=== PATIENT | male | born 1995 | race Caucasian/White ===

== ENCOUNTER 2017-01-02 19:08 | Emergency (ER) | payer OTHER ==
[2017-01-02 19:12] VITALS: RESP 18; O2SAT 97
[2017-01-02] MEDS ORDERED: IBUPROFEN 600 MG TAB PO ONE (19:32)
--- NOTE | 2017-01-02 19:38 | EDPHY ---
H & P Stated Complaint: fell, deformity to right elbow HPI/ROS: CHIEF COMPLAINT: Elbow injury, fall HISTORY OF PRESENT ILLNESS: Patient was skateboarding just prior to arrival when he fell on outstretched arm. He landed with his palm on the ground. He he describes a hyperextension injury of the right elbow. He now has pain over the proximal radius, posterior elbow. He has no pain of the right hand, wrist, shoulder. No head or neck injury. No loss of conscious. No chest or back injury or pain. No abdominal pain. The pain in the right elbow is mild-to- moderate. More painful with flexion, supination or pronation. It does not radiate. There is no sensory changes distally. No injury elsewhere. He is right-hand dominant. No other associated complaints or modifying factors. Mother is at bedside. PRIOR ORTHO INJURIES: None ESTABLISHED ORTHOPEDIST: None REVIEW OF SYSTEMS: Ten systems reviewed and are negative unless otherwise noted in the HPI EXAMINATION General Appearance: Alert, no distress Cardiovascular: Pulses normal throughout. Symmetric radial pulses 2+. Brisk cap refill Neurological: A&O, sensory symmetric, strength symmetric. Strength is symmetric in the interossei. Difficult to test strength in the elbow due to pain. Two point sensation intact in the right hand. Radial, ulnar and median distributions intact in the affected arm. Skin: Warm and dry, no rash. No lacerations abrasions or contusions. Extremities: Tenderness it radial head, olecranon on the right upper extremity. There is no tenderness of the right hand. No tenderness of the right anatomic snuffbox. Range of motion of the fingers and wrist are fully intact. Range of motion of the right shoulder intact. Range of motion of the elbow is difficult to test due to pain. He does have painful pronation and supination. He is neurovascular intact distally. Psychiatric: Mood and affect normal DIFFERENTIAL DIAGNOSES: Including but not limited to radial head fracture, sprain, strain, dislocation, subluxation, fracture dislocation MDM: 7:28 p.m. Mechanical fall on outstretched arm with pain in the right posterior elbow and at the radial head. He is neurovascular intact distally. No injury to the right shoulder, brachium, forearm, wrist or fingers. X-ray has been ordered. 7:55 p.m. X-ray as interpreted by me reveals a small, nondisplaced radial head fracture as well as a small avulsion off the posterior aspect of the olecranon. He remains neurovascular intact. Awaiting the radiologist's interpretation. 8:10 p.m. X-ray has been read as an olecranon fracture. I discussed the film with Dr. Donnelly regarding the possibility of a radial head fracture. He does not appreciate an acute fracture. The patient be placed in a posterior splint sling. I have discussed this with the patient. He remains neurovascular intact. We discussed orthopedic follow-up, return to the emergency department precautions. He is comfortable with this plan. Splint procedure: I did actively participate in the application of the splint on this patient. He is neurovascular intact post procedure. ED Precautions: Worsening pain. Erythema, edema, cyanosis, pallor, paresthesia or anesthesia. SUPERVISION: This patient was independently evaluated without direct examination by the attending physician. Case was discussed with attending physician. Source: Patient, Family Exam Limitations: No limitations - Personal History Current Tetanus Diphtheria and Acellular Pertussis (TDAP): Yes - Medical/Surgical History Hx Asthma: No Hx Chronic Respiratory Disease: No Hx Diabetes: No Hx Cardiac Disease: No Hx Renal Disease: No Hx Cirrhosis: No Hx Alcoholism: No Hx HIV/AIDS: No Hx Splenectomy or Spleen Trauma: No Other PMH: denies - Social History Smoking Status: Never smoked Constitutional: Initial Vital Signs Temperature (C) 98.6 F 01/02/17 19:10 Heart Rate 66 01/02/17 19:10 Respiratory Rate 18 01/02/17 19:10 Blood Pressure 141/83 H 01/02/17 19:10 O2 Sat (%) 97 01/02/17 19:10 O2 Delivery Mode Room Air Allergies/Adverse Reactions: No Known Allergies Allergy (Unverified 01/02/17 19:10) Home Medications: Medication Instructions Recorded Hydrocodone/APAP 5/325 [[place] 1 - 2 tab PO Q4H PRN #10 tab 01/02/17 5/325 (*)] Medical Decision Making - Diagnostics Imaging: Discussed imaging studies w/ roll clamp operator Radiologist - Data Points Medications Given: Discontinued Medications Ibuprofen (Motrin) 600 mg PO EDNOW ONE Stop: 01/02/17 19:33 Last Admin: 01/02/17 19:35 Dose: 600 mg Departure - Departure Disposition: Home, Routine, Self-Care Clinical Impression: Sprain of elbow, right Qualifiers: Encounter type: initial encounter Qualified Code(s): S53.401A - Unspecified sprain of right elbow, initial encounter Elbow fracture, right Qualifiers: Encounter type: initial encounter Fracture type: closed Qualified Code(s): S42.401A - Unspecified fracture of lower end of right humerus, initial encounter for closed fracture Condition: Good Instructions: Elbow Sprain (ED) Additional Instructions: 1. Mandatory follow up with orthopedist early next week for definitive care 2. Return to the ER for any numbness, tingling, weakness, wrist drop 3. Continue [id number] anti-inflammatories as discussed as needed Referrals: Jenna Marroquin MD [Medical Doctor] - As per Instructions Prescriptions: Hydrocodone/APAP 5/325 [[place] 5/325 (*)] 1 - 2 tab PO Q4H PRN #10 tab PRN Reason: Pain, Moderate
[2017-01-02 20:34] VITALS: BP 119/87; PULSE 75; TEMP 98.2
== END 2017-01-02 20:34 | disposition home or self-care (01) ==
DX: S42.401A Unspecified fracture of lower end of right humerus, initial encounter for closed fracture (principal); S53.401A Unspecified sprain of right elbow, initial encounter; V00.131A Fall from skateboard, initial encounter; Y99.8 Other external cause status; Y93.51 Activity, roller skating (inline) and skateboarding